=== PATIENT | male | born 1995 | race Caucasian/White ===

== ENCOUNTER 2020-03-11 08:36 | Emergency (ER) | payer BC ==
[~2020-03-11] VITALS: Ht 182.9 cm; Wt 79.4 kg
[2020-03-11] MEDS ORDERED: DOXYCYCLINE 10100 M2 PO (09:13)
[2020-03-11 09:18] VITALS: BP 124/76
== END 2020-03-11 09:18 | disposition home or self-care (01) ==
LOC: M.ERS 08:36
DX: L73.9 Follicular disorder, unspecified (principal)